=== PATIENT | male | born 1940 | race Caucasian/White ===

== ENCOUNTER 2023-04-03 23:44 | Emergency (ER) | payer BC ==
[~2023-04-03] VITALS: Ht 182.9 cm; Wt 79.4 kg
[2023-04-04] MEDS ORDERED: PEG4000S4 PO (01:12)
[2023-04-04] MEDS ORDERED: DOCU-275 PO (01:12)
[2023-04-04 01:21] VITALS: BP 119/81; TEMP 98; O2SAT 94
== END 2023-04-04 01:22 | disposition home or self-care (01) ==
LOC: ER 23:55
DX: K59.03 Drug induced constipation (principal); T40.2X5A Adverse effect of other opioids, initial encounter; R10.2 Pelvic and perineal pain; Y92.89 Other specified places as the place of occurrence of the external cause

== ENCOUNTER 2024-01-31 04:36 | Emergency (ER) | payer BC ==
[~2024-01-31] VITALS: Ht 177.8 cm; Wt 79.4 kg
[~2024-01-31 04:36] MED LIST: DOCU-275 PO; PEG4000S4 PO
[2024-01-31] MEDS ORDERED: ONDANSETRON HCL/PF 4 MG/2 ML VIAL ONE (04:57)
[2024-01-31] MEDS: ONDANSETRON HCL/PF 4 MG/2 ML VIAL IVP ONE (04:58)
[2024-01-31] MEDS: IV NS 0.9% 1,000 ML BAG IV ONE (04:58)
[2024-01-31 05:07] LABS: BASOPHILS # (AUTO) 0.1 K/uL (0.0-0.2); BASOPHILS % (AUTO) 0.8 % (0.0-2.0); EOSINOPHILS # (AUTO) 0.1 K/uL (0.0-0.7); EOSINOPHILS % (AUTO) 1.2 % (0.0-6.0); HEMATOCRIT 43 % (39-51); HEMOGLOBIN 14.6 g/dL (13.5-17.5); LYMPHOCYTES # (AUTO) 1.8 K/uL (0.8-4.8); LYMPHOCYTES % (AUTO) 20.9 % (20.0-44.0); MEAN CORPUSCULAR HEMOGLOBIN 30 PG (26.0-33.0); MEAN CORPUSCULAR HGB CONC 34 g/dl (31.0-36.0); MEAN CORPUSCULAR VOLUME 87 fL (80-96); MONOCYTES # (AUTO) 0.4 K/uL (0.1-1.30); MONOCYTES % (AUTO) 4.7 % (2.0-12.0); NEUTROPHILS # (AUTO) 6.3 K/uL (1.8-8.9); NEUTROPHILS % (AUTO) 72.4 % (43.0-81.0); PLATELET COUNT (AUTO) 183 K/uL (150-450); RED BLOOD CELL COUNT(AUTO) 4.91 MIL/uL (4.5-6.0); WHITE BLOOD COUNT (AUTO) 8.8 K/uL (4.3-11.0)
[2024-01-31 05:25] LABS: CALCIUM, SERUM 9.3 mg/dL (8.5-10.1); CARBON DIOXIDE 28 mmol/L (21-32); CHLORIDE 109 mmol/L (98-107); CREATININE 1.1 mg/dL (0.6-1.3); GLUCOSE 135 mg/dL (74-106); POTASSIUM 3.8 mmol/L (3.5-5.1); SODIUM SERUM 145 mmol/L (136-145); UREA NITROGEN, BLOOD 25 mg/dL (7-18)
[2024-01-31 06:52] LABS: APPEARANCE,URINE CLEAR (CLEAR); BILIRUBIN,URINE NEGATIVE (NEGATIVE); BLOOD, URINE NEGATIVE Ery/uL (NEGATIVE); COLOR,URINE DARK YELLOW (YELLOW); KETONES,URINE NEGATIVE (NEGATIVE); LEUKOCYTE ESTERASE ,URINE NEGATIVE (NEGATIVE); NITRITE, URINE NEGATIVE (NEGATIVE); PROTEIN,URINE TRACE mg/dl (NEGATIVE); UGLUCOSE NEGATIVE (NEGATIVE); UROBILINOGEN,URINE 0.2 EU/dL (0.2)
[2024-01-31 07:02] VITALS: BP 126/77; TEMP 97.6; O2SAT 98
[2024-01-31 07:04] LABS: ADD URINE CULTURE YES; BACTERIA,URINE 1+ /HPF (None Seen); MUCUS,URINE Few /LPF (None Seen); RBC,URINE 0-2 /HPF (0-2); SQUAMOUS EPITHELIAL CELL,UR 0-2 /HPF (None Seen)
== END 2024-01-31 07:02 | disposition home or self-care (01) ==
LOC: ER 04:37
DX: R42 Dizziness and giddiness (principal); R11.2 Nausea with vomiting, unspecified; E78.5 Hyperlipidemia, unspecified; E86.0 Dehydration; E87.8 Other disorders of electrolyte and fluid balance, not elsewhere classified; Z98.2 Presence of cerebrospinal fluid drainage device
CPT/HCPCS: 99285; 96374; 70450; 71045; 96361; 93005; 85025; 80048; 87086; 81001; 36415; 84484; J2405; J7030